=== PATIENT | female | born 1995 | race Two or more races ===

== ENCOUNTER 2021-11-28 07:10 | Inpatient (IN) | payer OTHER ==
[2021-11-28] MEDS ORDERED: BUTORPHANOL TARTRATE 1 MG/ML VIAL IVPB PRN (07:52)
[2021-11-28 09:00] VITALS: BMI 32.1
[2021-11-28] MEDS ORDERED: DINOPROSTONE 10 MG VAGINAL SUPPOSITORY VG ONE (09:15)
[2021-11-28 09:17] LABS: BASO % 0.3 % (0-2.0); EOS % 1.6 % (0-4.5); HEMATOCRIT 31.5 % (32.4-45.2); HEMOGLOBIN 10.2 GM/dL (10.7-15.3); LYMPH % 15.7 % (8-40); MCH 21.2 pg (25.7-33.7); MCHC 32.2 g/dl (32.0-36.0); MEAN CELL VOLUME 65.9 fl (80-96); MEAN PLT VOLUME 8.2 fl (7.5-11.1); MONO % 5.8 % (3.8-10.2); NEUT % 76.6 % (42.8-82.8); PLATELET COUNT 327 10^3/uL (134-434); RBC 4.79 M/mm3 (3.60-5.2); WHITE BLOOD COUNT 9.9 K/mm3 (4.0-10.0)
[2021-11-28] MEDS ORDERED: PROMETHAZINE HCL 25 MG/1 ML VIAL IVPUSH ONE (09:30)
[2021-11-28 09:48] LABS: CALCIUM 8.8 mg/dL (8.5-10.1)
[2021-11-28 09:49] LABS: BLOOD UREA NITROGEN 10.4 mg/dL (7-18)
[2021-11-28 09:51] LABS: ACTIVATED PTT 28.2 SECONDS (25.2-36.5); INR 0.95 (0.83-1.09); PROTHROMBIN TIME (PATIENT) 10.9 SEC (9.7-13.0)
[2021-11-28 09:53] LABS: CREATININE 0.5 mg/dL (0.55-1.3)
[2021-11-28 10:01] LABS: ANISOCYTOSIS 3+; MACROCYTOSIS 1+; PLATELET ESTIMATE NORMAL
[2021-11-28] MEDS: ELECTROLYTE-148 SOLN 1,000 ML IV SCH ×3 (10:30→21:05)
[2021-11-28] MEDS ORDERED: AMPICILLIN - 2 GM in SODIUM CHLORIDE 100 ML IVPB ONE ×2 (14:07→14:11)
[2021-11-28] MEDS ORDERED: BUTORPHANOL TARTRATE 2 MG/ML VIAL ONE (14:14)
[2021-11-28] MEDS ORDERED: PROMETHAZINE HCL 25 MG/1 ML VIAL ONE (14:15)
[2021-11-28] MEDS ORDERED: AMPICILLIN SODIUM 2 GM VIAL ONE (15:10)
[2021-11-28] MEDS ORDERED: SODIUM CHLORIDE 100 ML IVPB ONE (15:10)
[2021-11-28] MEDS ORDERED: AMPICILLIN - 1 GM in SODIUM CHLORIDE 100 ML IVPB SCH (18:08)
[2021-11-28] MEDS ORDERED: AMPICILLIN SODIUM 1 GM VIAL ONE ×2 (19:28→22:58)
[2021-11-28] MEDS: AMPICILLIN - 1 GM in SODIUM CHLORIDE 100 ML IVPB SCH ×2 (19:30→23:30)
[2021-11-28] MEDS ORDERED: FENTANYL/BUPIVACAINE/NS/PF - PCEA - 50 ML DISP.SYRIN EP ONE (20:37)
[2021-11-28] MEDS ORDERED: BUPIVACAINE HCL/PF 0.25% (2.5MG/ML) 10 ML VIAL ONE (20:44)
[2021-11-28] MEDS: FENTANYL/BUPIVACAINE/NS/PF - PCEA - 50 ML DISP.SYRIN EP SCH (21:05)
[2021-11-28] MEDS ORDERED: LIDOCAINE HCL 1% PRESERVATIVE FREE - 30ML VIAL ONE (21:15)
[2021-11-28] MEDS ORDERED: OXYTOCIN 20 UNITS in 0.9% NS 20 UNIT/1,000 ML INFUS.BAG IV ONE (21:15)
[2021-11-28] MEDS ORDERED: NALOXONE HCL 0.4 MG/ML VIAL IVPUSH PRN (22:14)
[2021-11-28] MEDS ORDERED: OXYTOCIN 30 UNITS in 0.9% NS 30 UNIT/500 ML INFUS.BAG IVPB ONE (22:58)
[2021-11-28] MEDS ORDERED: OXYTOCIN 30 UNITS in 0.9% NS 30 UNIT/500 ML INFUS.BAG IVPB SCH (23:00)
[2021-11-29] MEDS ORDERED: FENTANYL/BUPIVACAINE/NS/PF - PCEA - 50 ML DISP.SYRIN EP ONE (01:46)
[2021-11-29] MEDS ORDERED: AMPICILLIN SODIUM 1 GM VIAL ONE (03:04)
[2021-11-29] MEDS: AMPICILLIN - 1 GM in SODIUM CHLORIDE 100 ML IVPB SCH (03:05)
[2021-11-29] MEDS ORDERED: ACETAMINOPHEN 325 MG TABLET (FP) PO PRN (05:32)
[2021-11-29] MEDS ORDERED: BISACODYL 10 MG SUPP.RECT RC PRN (05:32)
[2021-11-29] MEDS ORDERED: BENZOCAINE 28 GM HEMORRHOIDAL OINTMENT TP PRN (05:32)
[2021-11-29] MEDS ORDERED: METHYLERGONOVINE MALEATE 0.2 MG/1 ML AMP IM PRN (05:32)
[2021-11-29] MEDS ORDERED: BENZOCAINE 20% 57 GM BOTTLE TP PRN (05:32)
[2021-11-29] MEDS ORDERED: WITCH HAZEL 50% (TUCKS) 40 PAD/JAR PAD TP PRN (05:32)
[2021-11-29] MEDS ORDERED: oxyCODONE HCL 5 MG TABLET PO PRN (05:32)
[2021-11-29] MEDS ORDERED: OXYTOCIN 20 UNITS in 0.9% NS 20 UNIT/1,000 ML INFUS.BAG IV SCH (05:45)
[2021-11-29 06:37] LABS: CORD BASE EXCESS -9.9 mmol/L (0-2); CORD PCO2 35.7 mmHg (30-78); CORD pH 7.27 (7.14-7.44)
[2021-11-29 06:40] LABS: CORD BASE EXCESS -9.9 mmol/L (0-2); CORD HCO3 15.7 mmHg (20-29); CORD PCO2 34.1 mmHg (30-78); CORD pH 7.282 (7.14-7.44)
[2021-11-29] MEDS ORDERED: IBUPROFEN 600 MG TABLET (FP) PO ONE (07:54)
[2021-11-29] MEDS: IBUPROFEN 600 MG TABLET (FP) PO PRN ×3 (07:55→21:36)
[2021-11-29] MEDS: ELECTROLYTE-148 SOLN 1,000 ML IV SCH (08:15)
[2021-11-29] MEDS: FERROUS SO4 325 MG TABLET (FP) PO SCH ×3 (08:34→17:16)
[2021-11-29] MEDS: PRENATAL VITAMINS W/ FOLIC ACID TABLET (FP) PO SCH (11:35)
[2021-11-29] MEDS: FENTANYL/BUPIVACAINE/NS/PF - PCEA - 50 ML DISP.SYRIN EP SCH (23:10)
[2021-11-30 07:53] LABS: BASO % 0.3 % (0-2.0); EOS % 0.8 % (0-4.5); HEMATOCRIT 22.8 % (32.4-45.2); HEMOGLOBIN 7.3 GM/dL (10.7-15.3); LYMPH % 17.4 % (8-40); MCHC 31.8 g/dl (32.0-36.0); MEAN CELL VOLUME 66.1 fl (80-96); MEAN PLT VOLUME 8.1 fl (7.5-11.1); MONO % 7.4 % (3.8-10.2); NEUT % 74.1 % (42.8-82.8); PLATELET COUNT 253 10^3/uL (134-434); RBC 3.45 M/mm3 (3.60-5.2); RDW 17.5 % (11.6-15.6)
[2021-11-30] MEDS: PRENATAL VITAMINS W/ FOLIC ACID TABLET (FP) PO SCH (09:11)
[2021-11-30] MEDS: FERROUS SO4 325 MG TABLET (FP) PO SCH ×3 (09:12→18:36)
[2021-11-30] MEDS: IBUPROFEN 600 MG TABLET (FP) PO PRN ×2 (09:12→21:41)
[2021-11-30] MEDS ORDERED: SENNOSIDES/DOCUSATE COMBO (SENNA PLUS) TABLET (UD) PO PRN (22:00)
[2021-11-30] MEDS: FENTANYL/BUPIVACAINE/NS/PF - PCEA - 50 ML DISP.SYRIN EP SCH (22:21)
[2021-12-01] MEDS: IBUPROFEN 600 MG TABLET (FP) PO PRN ×2 (05:50→10:02)
[2021-12-01] MEDS: PRENATAL VITAMINS W/ FOLIC ACID TABLET (FP) PO SCH (10:01)
[2021-12-01] MEDS: FERROUS SO4 325 MG TABLET (FP) PO SCH ×2 (10:01→12:35)
[2021-12-01 10:12] VITALS: BP 101/70; PULSE 89; TEMP 97.2
== END 2021-12-01 16:00 | disposition home or self-care (01) | DRG 560 ==
LOC: JLDR 07:10 → J3W 11-29 08:10
PROVIDERS: ADMIT Obstetrics & Gynecology; ATTEND Obstetrics & Gynecology
PROC: 0W8NXZZ Division of Female Perineum, External Approach (ICD-10-PCS; principal; 2021-11-29)
PROC: 10E0XZZ Delivery of Products of Conception, External Approach (ICD-10-PCS; 2021-11-29)
DX: O48.0 Post-term pregnancy (principal); Z3A.41 41 weeks gestation of pregnancy; O99.824 Streptococcus B carrier state complicating childbirth; Z37.0 Single live birth
CPT/HCPCS: 36415; 36600; 59409; 80048; 82803; 85025; 85610; 85730; 86780; 86850; 86900; 86901

== ENCOUNTER 2023-02-28 10:41 | Emergency (ER) | payer OTHER ==
[2023-02-28 10:51] VITALS: BP 109/77; PULSE 101; RESP 20; TEMP 97.8; BMI 23.9
[2023-02-28] MEDS ORDERED: SODIUM CHLORIDE 0.9% 500 ML INFUS.BAG IV ONE (11:44)
[2023-02-28] MEDS ORDERED: ONDANSETRON 4 MG/2 ML VIAL IVPUSH ONE (11:44)
[2023-02-28] MEDS ORDERED: ONDANSETRON 4 MG/2 ML VIAL ONE (11:59)
[2023-02-28 12:28] LABS: URINE APPEARANCE CLEAR; URINE BILIRUBIN NEGATIVE (NEGATIVE); URINE COLOR YELLOW; URINE GLUCOSE (UA) NEGATIVE (NEGATIVE); URINE KETONE 1+ (NEGATIVE); URINE LEUK ESTERASE NEGATIVE (NEGATIVE); URINE NITRITE NEGATIVE (NEGATIVE); URINE PROTEIN NEGATIVE (NEGATIVE); URINE UROBILINOGEN 0.2 mg/dL (0.2-1.0)
[2023-02-28 12:31] LABS: BASO % 0.3 % (0-2.0); EOS % 0.4 % (0-4.5); HEMATOCRIT 36.2 % (32.4-45.2); HEMOGLOBIN 11.8 GM/dL (10.7-15.3); LYMPH % 10.8 % (8-40); MCH 22.1 pg (25.7-33.7); MCHC 32.7 g/dl (32.0-36.0); MEAN CELL VOLUME 67.5 fl (80-96); MEAN PLT VOLUME 8.5 fl (7.5-11.1); MONO % 7.8 % (3.8-10.2); NEUT % 80.7 % (42.8-82.8); PLATELET COUNT 308 10^3/uL (134-434); RBC 5.36 M/mm3 (3.60-5.2); RDW 16.5 % (11.6-15.6); WHITE BLOOD COUNT 9.1 K/mm3 (4.0-10.0)
[2023-02-28 12:56] LABS: POTASSIUM 3.8 mmol/L (3.5-5.1)
[2023-02-28 12:59] LABS: ALBUMIN 3.7 g/dl (3.4-5.0)
[2023-02-28 13:00] LABS: BLOOD UREA NITROGEN 7.3 mg/dL (7-18)
[2023-02-28 13:02] LABS: CREATININE 0.5 mg/dL (0.55-1.3)
[2023-02-28 13:04] LABS: BILIRUBIN,TOTAL 0.9 mg/dL (0.2-1); TOT PROT 7.2 g/dl (6.4-8.2)
== END 2023-02-28 14:19 | disposition home or self-care (01) ==
LOC: JERFT 10:41
PROC: 3E033GC Introduction of Other Therapeutic Substance into Peripheral Vein, Percutaneous Approach (ICD-10-PCS; principal; 2023-02-28)
DX: O21.9 Vomiting of pregnancy, unspecified (principal); O26.891 Other specified pregnancy related conditions, first trimester; R19.7 Diarrhea, unspecified; R10.30 Lower abdominal pain, unspecified; Z3A.11 11 weeks gestation of pregnancy; Z20.822 Contact with and (suspected) exposure to COVID-19
CPT/HCPCS: 0241U-QW; 36415; 76817-TC; 80053; 81003; 83690; 84702; 85025; 87086; 99284-25

== ENCOUNTER 2023-03-02 08:07 | Emergency (ER) | payer OTHER ==
[2023-03-02 08:17] VITALS: BP 99/62; PULSE 77; RESP 16; TEMP 98.2; BMI 23.9
[2023-03-02] MEDS ORDERED: METOCLOPRAMIDE HCL INJECTION 10 MG/2 ML VIAL IVPUSH ONE (08:32)
[2023-03-02] MEDS ORDERED: SODIUM CHLORIDE 0.9% 500 ML INFUS.BAG IV ONE (08:32)
[2023-03-02] MEDS ORDERED: METOCLOPRAMIDE HCL INJECTION 10 MG/2 ML VIAL ONE (08:35)
[2023-03-02 09:01] LABS: BASO % 0.7 % (0-2.0); HEMATOCRIT 34.2 % (32.4-45.2); HEMOGLOBIN 11.3 GM/dL (10.7-15.3); LYMPH % 12.2 % (8-40); MCH 22.3 pg (25.7-33.7); MCHC 33.1 g/dl (32.0-36.0); MEAN CELL VOLUME 67.4 fl (80-96); MEAN PLT VOLUME 8.2 fl (7.5-11.1); MONO % 5.1 % (3.8-10.2); PLATELET COUNT 308 10^3/uL (134-434); RBC 5.07 M/mm3 (3.60-5.2); RDW 16.8 % (11.6-15.6); WHITE BLOOD COUNT 10.5 K/mm3 (4.0-10.0)
[2023-03-02 09:30] LABS: POTASSIUM 3.8 mmol/L (3.5-5.1)
[2023-03-02 09:33] LABS: ALBUMIN 3.6 g/dl (3.4-5.0); CALCIUM 8.7 mg/dL (8.5-10.1)
[2023-03-02 09:34] LABS: BLOOD UREA NITROGEN 5.9 mg/dL (7-18)
[2023-03-02 09:36] LABS: CREATININE 0.5 mg/dL (0.55-1.3)
[2023-03-02 09:38] LABS: BILIRUBIN,TOTAL 0.9 mg/dL (0.2-1)
== END 2023-03-02 09:55 | disposition home or self-care (01) ==
LOC: JER 08:07
PROC: 3E033GC Introduction of Other Therapeutic Substance into Peripheral Vein, Percutaneous Approach (ICD-10-PCS; principal; 2023-03-02)
DX: O21.9 Vomiting of pregnancy, unspecified (principal); O26.891 Other specified pregnancy related conditions, first trimester; R19.7 Diarrhea, unspecified; Z3A.13 13 weeks gestation of pregnancy
CPT/HCPCS: 36415; 80053; 85025; 99284-25

== ENCOUNTER 2023-09-02 08:53 | Inpatient (IN) | payer OTHER ==
[2023-09-02] MEDS: ELECTROLYTE-148 SOLN 1,000 ML IV SCH ×3 (09:45→20:00)
[2023-09-02 10:34] VITALS: BMI 33.6
[2023-09-02] MEDS ORDERED: DINOPROSTONE 10 MG VAGINAL SUPPOSITORY VG ONE (11:00)
[2023-09-02] MEDS ORDERED: BUTORPHANOL TARTRATE 2 MG/ML VIAL IVPUSH PRN (11:01)
[2023-09-02] MEDS ORDERED: PROMETHAZINE HCL 25 MG/1 ML VIAL IVPB PRN (11:02)
[2023-09-02] MEDS ORDERED: AMPICILLIN - 2 GM in SODIUM CHLORIDE 100 ML IVPB ONE (11:09)
[2023-09-02] MEDS ORDERED: BUTORPHANOL TARTRATE 1 MG/ML VIAL IVPB PRN (11:18)
[2023-09-02 11:24] LABS: BASO % 0.4 % (0-2.0); EOS % 0.7 % (0-4.5); HEMATOCRIT 29.8 % (32.4-45.2); HEMOGLOBIN 9.3 GM/dL (10.7-15.3); LYMPH % 13.2 % (8-40); MCH 19.2 pg (25.7-33.7); MEAN CELL VOLUME 61.7 fl (80-96); MEAN PLT VOLUME 8.4 fl (7.5-11.1); NEUT % 78.7 % (42.8-82.8); PLATELET COUNT 333 10^3/uL (134-434); RBC 4.83 M/mm3 (3.60-5.2); RDW 19.2 % (11.6-15.6); WHITE BLOOD COUNT 8.7 K/mm3 (4.0-10.0)
[2023-09-02 11:31] LABS: INR 1.02 (0.83-1.09); PROTHROMBIN TIME (PATIENT) 11.8 SEC (9.7-13.0)
[2023-09-02 11:33] LABS: ACTIVATED PTT 26.9 SECONDS (25.2-36.5)
[2023-09-02 11:52] LABS: POTASSIUM 4.5 mmol/L (3.5-5.1)
[2023-09-02 11:53] LABS: BLOOD UREA NITROGEN 6.7 mg/dL (7-18); CALCIUM 8.1 mg/dL (8.5-10.1)
[2023-09-02 11:57] LABS: CREATININE 0.5 mg/dL (0.55-1.3)
[2023-09-02 11:58] LABS: ANISOCYTOSIS 3+; MACROCYTOSIS 0; OVALOCYTE 1+
[2023-09-02] MEDS ORDERED: AMPICILLIN - 1 GM in SODIUM CHLORIDE 100 ML IVPB SCH (15:15)
[2023-09-02] MEDS ORDERED: AMPICILLIN SODIUM 2 GM VIAL ONE (18:24)
[2023-09-02] MEDS ORDERED: SODIUM CHLORIDE 100 ML IVPB ONE (18:24)
[2023-09-02] MEDS ORDERED: NALOXONE HCL 0.4 MG/ML VIAL IVPUSH PRN (18:52)
[2023-09-02] MEDS ORDERED: FENTANYL/BUPIVACAINE/NS/PF - PCEA - 50 ML DISP.SYRIN EP ONE (18:53)
[2023-09-02] MEDS ORDERED: FENTANYL CITRATE/PF 50 MCG/ML VIAL ONE (18:55)
[2023-09-02] MEDS ORDERED: BUPIVACAINE HCL/PF 0.25% (2.5MG/ML) 10 ML VIAL ONE (18:56)
[2023-09-02] MEDS ORDERED: FENTANYL/BUPIVACAINE/NS/PF - PCEA - 50 ML DISP.SYRIN EP SCH (19:00)
[2023-09-02] MEDS ORDERED: OXYTOCIN 20 UNITS in 0.9% NS 20 UNIT/1,000 ML INFUS.BAG IV ONE (19:05)
[2023-09-02] MEDS ORDERED: OXYTOCIN 30 UNITS in 0.9% NS 30 UNIT/500 ML INFUS.BAG IVPB ONE (20:07)
[2023-09-02] MEDS ORDERED: OXYTOCIN 30 UNITS in 0.9% NS 30 UNIT/500 ML INFUS.BAG IVPB SCH (20:15)
[2023-09-02] MEDS ORDERED: BENZOCAINE 20% 57 GM BOTTLE TP PRN (20:41)
[2023-09-02] MEDS ORDERED: METHYLERGONOVINE MALEATE 0.2 MG/1 ML AMP IM PRN (20:41)
[2023-09-02] MEDS ORDERED: oxyCODONE HCL 5 MG TABLET PO PRN (20:41)
[2023-09-02] MEDS ORDERED: BENZOCAINE 28 GM HEMORRHOIDAL OINTMENT TP PRN (20:41)
[2023-09-02] MEDS ORDERED: WITCH HAZEL 50% (TUCKS) 40 PAD/JAR PAD TP PRN (20:41)
[2023-09-02] MEDS ORDERED: ACETAMINOPHEN 325 MG TABLET (FP) PO PRN (20:41)
[2023-09-02] MEDS ORDERED: BISACODYL 10 MG SUPP.RECT RC PRN (20:41)
[2023-09-02] MEDS ORDERED: OXYTOCIN 20 UNITS in 0.9% NS 20 UNIT/1,000 ML INFUS.BAG IV SCH (20:45)
[2023-09-02 21:06] LABS: CORD BASE EXCESS -5.6 mmol/L (0-2); CORD HCO3 19.1 mmHg (20-29); CORD PCO2 35.8 mmHg (30-78); CORD pH 7.346 (7.14-7.44)
[2023-09-02 21:06] LABS: CORD BASE EXCESS -5.2 mmol/L (0-2); CORD PCO2 55.2 mmHg (30-78); CORD pH 7.238 (7.14-7.44)
[2023-09-03] MEDS: IBUPROFEN 600 MG TABLET (FP) PO PRN ×5 (00:16→19:03)
[2023-09-03 07:46] LABS: BASO % 0.2 % (0-2.0); EOS % 0.6 % (0-4.5); HEMATOCRIT 28.5 % (32.4-45.2); LYMPH % 11.9 % (8-40); MCHC 31.5 g/dl (32.0-36.0); MEAN CELL VOLUME 61.5 fl (80-96); MEAN PLT VOLUME 8.3 fl (7.5-11.1); NEUT % 78.3 % (42.8-82.8); PLATELET COUNT 286 10^3/uL (134-434); RBC 4.63 M/mm3 (3.60-5.2); RDW 19.1 % (11.6-15.6); WHITE BLOOD COUNT 13.4 K/mm3 (4.0-10.0)
[2023-09-03 08:10] LABS: MCH 19.4 pg (25.7-33.7)
[2023-09-03] MEDS: FERROUS SO4 325 MG TABLET (FP) PO SCH ×3 (08:31→18:43)
[2023-09-03] MEDS: PRENATAL VITAMINS W/ FOLIC ACID TABLET (FP) PO SCH (09:21)
[2023-09-03] MEDS ORDERED: SENNOSIDES/DOCUSATE COMBO (SENNA PLUS) TABLET (UD) PO PRN (22:00)
[2023-09-04] MEDS: FERROUS SO4 325 MG TABLET (FP) PO SCH ×2 (08:45→12:58)
[2023-09-04] MEDS: IBUPROFEN 600 MG TABLET (FP) PO PRN ×2 (08:49→13:11)
[2023-09-04] MEDS: PRENATAL VITAMINS W/ FOLIC ACID TABLET (FP) PO SCH (10:28)
[2023-09-04 12:08] VITALS: BP 101/60; PULSE 75; RESP 18; TEMP 98.1
== END 2023-09-04 13:55 | disposition home or self-care (01) | DRG 560 ==
LOC: JLDR 08:53 → J3W 22:32
PROVIDERS: ADMIT Obstetrics & Gynecology; ATTEND Obstetrics & Gynecology
PROC: 10E0XZZ Delivery of Products of Conception, External Approach (ICD-10-PCS; principal; 2023-09-02)
PROC: 0HQ9XZZ Repair Perineum Skin, External Approach (ICD-10-PCS; 2023-09-02)
PROC: 3E0P7VZ Introduction of Hormone into Female Reproductive, Via Natural or Artificial Opening (ICD-10-PCS; 2023-09-02)
DX: O99.824 Streptococcus B carrier state complicating childbirth (principal); O70.0 First degree perineal laceration during delivery; Z3A.39 39 weeks gestation of pregnancy; Z37.0 Single live birth
CPT/HCPCS: 36415; 36600; 80048; 82803; 85025; 85610; 85730; 86780; 86850; 86900; 86901

== ENCOUNTER 2025-01-09 22:00 | Inpatient (IN) | payer OTHER ==
[2025-01-09] MEDS: ELECTROLYTE-148 SOLN 1,000 ML IV SCH ×2 (23:10)
[2025-01-09] MEDS ORDERED: AMPICILLIN SODIUM 2 GM VIAL ONE (23:17)
[2025-01-09 23:30] LABS: ABSOLUTE IMMATURE GRANULOCYTES 0.06 x10^3/uL (0.0-0.031); BASOPHILS # 0.04 x10^3/uL (0.01-0.08); EOSINOPHIL % 0.8 % (0.7-5.8); EOSINOPHILS # 0.08 x10^3/uL (0.04-0.36); HEMATOCRIT 34.3 % (34.1-44.9); HEMOGLOBIN 10.5 g/dL (11.2-15.7); MCHC 30.6 g/dl (32.2-35.5); MEAN PLT VOLUME 10.2 fl (9.4-12.3); MONOCYTE # 0.73 x10^3/uL (0.24-0.86); MONOCYTE % 7.7 % (4.7-12.5); PLATELET COUNT 273 x10^3/uL (182-369); RDW 18.5 % (12.1-16.5)
[2025-01-09] MEDS: AMPICILLIN - 2 GM in SODIUM CHLORIDE 100 ML IVPB ONE (23:30)
[2025-01-09 23:41] LABS: INR 0.97 (0.83-1.09); PROTHROMBIN TIME (PATIENT) 10.7 SEC (9.7-13.0)
[2025-01-09 23:44] LABS: ACTIVATED PTT 27.6 SECONDS (25.2-36.5)
[2025-01-09] MEDS ORDERED: OXYTOCIN 20 UNITS in 0.9% NS 20 UNIT/1,000 ML INFUS.BAG IV ONE (23:48)
[2025-01-10] LABS: POTASSIUM 4.4 mmol/L (3.5-5.1)
[2025-01-10 00:01] LABS: CALCIUM 9.5 mg/dL (8.5-10.1)
[2025-01-10] MEDS ORDERED: BUPIVACAINE HCL/PF 0.25% (2.5MG/ML) 10 ML VIAL ONE (00:01)
[2025-01-10] MEDS ORDERED: FENTANYL CITRATE/PF 50 MCG/ML VIAL ONE (00:01)
[2025-01-10 00:05] LABS: CREATININE 0.6 mg/dL (0.55-1.3)
[2025-01-10] MEDS: FENTANYL/BUPIVACAINE/NS/PF - PCEA - 50 ML DISP.SYRIN EP SCH (00:05)
[2025-01-10] MEDS ORDERED: NALOXONE HCL 0.4 MG/ML VIAL IVPUSH PRN (00:24)
[2025-01-10 00:52] LABS: HIV INTERPRETATION NEGATIVE (NEGATIVE)
[2025-01-10 01:22] VITALS: BMI 32.5
[2025-01-10] MEDS ORDERED: AMPICILLIN SODIUM 1 GM VIAL ONE (03:23)
[2025-01-10] MEDS: AMPICILLIN - 1 GM in SODIUM CHLORIDE 100 ML IVPB SCH (03:30)
[2025-01-10] MEDS ORDERED: OXYTOCIN 30 UNITS in 0.9% NS 30 UNIT/500 ML INFUS.BAG IVPB ONE (03:42)
[2025-01-10] MEDS: OXYTOCIN 30 UNITS in 0.9% NS 30 UNIT/500 ML INFUS.BAG IVPB SCH (04:00)
[2025-01-10] MEDS ORDERED: FENTANYL/BUPIVACAINE/NS/PF - PCEA - 50 ML DISP.SYRIN EP ONE ×2 (04:20)
[2025-01-10] MEDS: OXYTOCIN 20 UNITS in 0.9% NS 20 UNIT/1,000 ML INFUS.BAG IV SCH (05:55)
[2025-01-10 07:02] LABS: CORD BASE EXCESS -4.1 mmol/L (0-2); CORD PCO2 43.5 mmHg (30-78); CORD pH 7.321 (7.14-7.44)
[2025-01-10 07:12] LABS: CORD PCO2 48.6 mmHg (30-78); CORD pH 7.254 (7.14-7.44)
[2025-01-10] MEDS ORDERED: BENZOCAINE 28 GM HEMORRHOIDAL OINTMENT TP PRN (07:18)
[2025-01-10] MEDS ORDERED: METHYLERGONOVINE MALEATE 0.2 MG/1 ML AMP IM PRN (07:18)
[2025-01-10] MEDS ORDERED: WITCH HAZEL 50% (TUCKS) 40 PAD/JAR PAD TP PRN (07:18)
[2025-01-10] MEDS ORDERED: BENZOCAINE 20% 57 GM BOTTLE TP PRN (07:18)
[2025-01-10] MEDS ORDERED: oxyCODONE HCL 5 MG TABLET PO PRN (07:18)
[2025-01-10] MEDS: FERROUS SO4 325 MG TABLET (FP) PO SCH (08:00)
[2025-01-10] MEDS ORDERED: IBUPROFEN 600 MG TABLET (FP) PO ONE (08:24)
[2025-01-10] MEDS: IBUPROFEN 600 MG TABLET (FP) PO PRN (08:25)
[2025-01-10] MEDS: PRENATAL VITAMINS W/ FOLIC ACID TABLET (FP) PO SCH (10:30)
[2025-01-11] MEDS: BUTORPHANOL TARTRATE 2 MG/ML VIAL IVPB ONE (06:32)
[2025-01-11] MEDS: PROMETHAZINE HCL 25 MG/1 ML VIAL IVPB ONE (06:32)
[2025-01-11 07:40] LABS: BASOPHILS # 0.05 x10^3/uL (0.01-0.08); HEMATOCRIT 28.5 % (34.1-44.9); HEMOGLOBIN 8.6 g/dL (11.2-15.7); MCHC 30.2 g/dl (32.2-35.5); MEAN CELL VOLUME 68.2 fl (79.4-94.8); MEAN PLT VOLUME 11.2 fl (9.4-12.3); MONOCYTE # 0.65 x10^3/uL (0.24-0.86); MONOCYTE % 6.6 % (4.7-12.5); PLATELET COUNT 229 x10^3/uL (182-369); RDW 18.2 % (12.1-16.5)
[2025-01-11] MEDS: BISACODYL 10 MG SUPP.RECT RC PRN (14:37)
[2025-01-11] MEDS: SENNOSIDES/DOCUSATE COMBO (SENNA PLUS) TABLET (UD) PO PRN (20:26)
[2025-01-11] MEDS: ACETAMINOPHEN 325 MG TABLET (FP) PO PRN (22:48)
[2025-01-11 23:16] VITALS: RESP 18
[2025-01-12 10:34] VITALS: BP 107/66; PULSE 79; TEMP 97.9
== END 2025-01-12 13:10 | disposition home or self-care (01) | DRG 560 ==
LOC: JDEL 22:00 → JLDR 22:40 → J3W 01-10 09:45
PROVIDERS: ADMIT Obstetrics & Gynecology; ATTEND Obstetrics & Gynecology
PROC: 10E0XZZ Delivery of Products of Conception, External Approach (ICD-10-PCS; principal; 2025-01-10)
PROC: 0HQ9XZZ Repair Perineum Skin, External Approach (ICD-10-PCS; 2025-01-10)
DX: O70.0 First degree perineal laceration during delivery (principal); Z3A.40 40 weeks gestation of pregnancy; Z37.0 Single live birth
CPT/HCPCS: 36415; 36600; 59409; 80048; 82803; 85025; 85610; 85730; 86780; 86803; 86850; 86900; 86901; 87389